=== PATIENT | female | born 2000 | race Caucasian/White ===

== ENCOUNTER 2020-01-09 15:03 | Emergency (ER) | payer OTHER ==
[~2020-01-09] VITALS: Ht 170.2 cm; Wt 96.0 kg
[2020-01-09 15:27] VITALS: BP 110/67
[2020-01-09 16:53] LABS: CLARITY URINE CLOUDY (CLEAR); COLOR URINE YELLOW (YELLOW); KETONES URINE NEGATIVE (NEGATIVE); LEUKOCYTE ESTERASE URINE 3+ (NEGATIVE); NITRITE URINE NEGATIVE (NEGATIVE); OCCULT BLOOD URINE 3+ (NEGATIVE); PH URINE 5.5 (4.5-8.0); PROTEIN URINE TRACE (NEGATIVE); SPECIFIC GRAVITY URINE 1.018 (1.005-1.030)
== END 2020-01-09 17:23 | disposition home or self-care (01) ==
LOC: ER 15:03
DX: N39.0 Urinary tract infection, site not specified (principal); B37.3 Candidiasis of vulva and vagina
CPT/HCPCS: 81003; 81025; 99283

== ENCOUNTER 2021-06-13 04:56 | Emergency (ER) | payer BC, MEDICAID ==
[~2021-06-13] VITALS: Ht 170.2 cm; Wt 100.0 kg
[2021-06-13] MEDS ORDERED: KETOROLAC 30MG/ML VIAL IM ONE (06:00)
[2021-06-13 06:16] VITALS: BP 112/78
[2021-06-13] MEDS ORDERED: IBUP-2028 PO (07:40)
[2021-06-13] MEDS ORDERED: OXYC-100 PO (07:40)
== END 2021-06-13 07:52 | disposition home or self-care (01) ==
LOC: ER 04:56
DX: S16.1XXA Strain of muscle, fascia and tendon at neck level, initial encounter (principal); M25.511 Pain in right shoulder; X50.0XXA Overexertion from strenuous movement or load, initial encounter; Y93.89 Activity, other specified; Y92.89 Other specified places as the place of occurrence of the external cause
CPT/HCPCS: 72125; 73030; 81025; 96372; 99284; J1885

== ENCOUNTER 2021-06-17 09:38 | Emergency (ER) | payer BC, MEDICAID ==
[~2021-06-17] VITALS: Ht 170.2 cm; Wt 100.0 kg
[~2021-06-17 09:38] MED LIST: IBUP-2028 PO; OXYC-100 PO
[2021-06-17 09:58] VITALS: BP 109/69
[2021-06-17] MEDS ORDERED: METH-773 MT (10:12)
[2021-06-17] MEDS ORDERED: KETOROLAC 60MG/2ML VIAL IM ONE (10:15)
== END 2021-06-17 11:35 | disposition home or self-care (01) ==
LOC: ER 09:38
DX: R51.9 Headache, unspecified (principal); M54.12 Radiculopathy, cervical region; M54.2 Cervicalgia; Z98.51 Tubal ligation status; Z79.899 Other long term (current) drug therapy
CPT/HCPCS: 81025; 96372; 99283; J1885